=== PATIENT | female | born 1975 | race Caucasian/White ===

== ENCOUNTER 2017-08-08 17:49 | Emergency (ER) | payer MEDICAID ==
[~2017-08-08] VITALS: Ht 154.9 cm; Wt 68.0 kg
--- NOTE | 2017-08-08 19:04 | NUR ---
Patient discharged to home in stable conditon. Written and verbal after care instructions given. Patient verbalizes understanding of instructions.PT WALKS IN STEADY GAIT, PT WITH FAMILY MEMBERS
[2017-08-08 19:05] VITALS: BP 139/61
== END 2017-08-08 19:06 | disposition home or self-care (01) ==
LOC: ER 17:51
DX: J02.9 Acute pharyngitis, unspecified (principal)
CPT/HCPCS: 99283; A4663